=== PATIENT | male | born 1985 | race Caucasian/White ===

== ENCOUNTER 2023-01-05 10:19 | Emergency (ER) | payer OTHER, SELFPAY ==
[2023-01-05 10:29] VITALS: BP 140/85; PULSE 90; RESP 18; TEMP 37.2; O2SAT 100
--- NOTE | 2023-01-05 10:37 | ED.URI ---
HPI - URI/Sore Throat General Chief Complaint: Upper Respiratory Infection Stated Complaint: Sore Throat Time Seen by Provider: 01/05/23 10:32 Source: patient Mode of arrival: ambulatory Limitations: no limitations History of Present Illness HPI Narrative: Patient presents today complaining of sore throat since last night that increases with swallowing. Also has a mild cough and congestion which he attributes to seasonal allergies. Denies fever, shortness of breath, or difficulty swallowing. Currently rates pain 4/10 and has tried no [id number] treatment prior to arrival. was diagnosed with strep throat 2 days ago. Related Data Allergies Allergy/AdvReac Type Severity Reaction Status Date / Time amoxicillin AdvReac Mild Hives Verified 01/05/23 10:21 Penicillins AdvReac Mild HIVES Verified 01/05/23 10:21 Review of Systems Review of Systems: CONSTITUTIONAL: Denies body aches, fever, chills, or sweats. EYES: Denies visual changes, redness, or discharge. ENT: Denies rhinorrhea, or otalgia.+ sore throat, congestion CARDIOVASCULAR: Denies chest pain, palpitations, or edema. RESPIRATORY: Denies dyspnea.+ cough GASTROINTESTINAL: Denies abdominal pain, nausea, vomiting, or diarrhea. GENITOURINARY: Denies dysuria or hematuria. SKIN: Denies rash, itching, or wounds. MUSCULOSKELETAL: Denies back pain, joint pain, or myalgia. NEUROLOGIC: Denies headache, numbness, tingling, or weakness. PSYCH: Denies depression or anxiety. [facility] Past Medical History Medical History (Updated 01/05/23 @ 10:40 by Nessa Eastman, [facility], ) Depression Hypogonadism Scrotal varices Seasonal allergies Social History Social History Smoking status: Never smoker Alcohol intake: current Comments At time of signature, I have reviewed and agree with nursing past medical, surgical, social and family history unless otherwise noted. Please see nursing chart for further information. There is no relevant family history pertinent to the presenting complaint Exam Narrative: GENERAL: Well-appearing, well-nourished, and in no acute distress. HEAD: Normocephalic, atraumatic. EYES: EOMI. No redness or drainage. Conjunctivae normal. ENT: Mucous membranes pink and moist. Nares clear. No rhinorrhea. TMs normal bilaterally. Throat erythematous without edema or exudate. Uvula midline. NECK: Normal AROM. Supple. No lymphadenopathy. CHEST: No respiratory distress. Clear to auscultation. HEART: Regular rate and rhythm. No murmur appreciated. EXTREMITIES: Normal range of motion. No edema. SKIN: Warm, dry, no rash. Capillary refill normal. Normal skin turgor. NEURO: No focal deficits. Alert and oriented x3. Gait steady. PSYCH: Normal affect. No signs of depression or anxiety. Course Course Level of Care: Express Care Visit Vital Signs Vital signs: Vital Signs Temperature 98.9 F 01/05/23 10:29 Pulse Rate 90 01/05/23 10:29 Respiratory Rate 18 01/05/23 10:29 Blood Pressure 140/85 01/05/23 10:29 Pulse Oximetry 100 01/05/23 10:29 Oxygen Delivery Room Air 01/05/23 10:29 Temperature 98.9 F 01/05/23 10:29 Pulse Rate 90 01/05/23 10:29 Respiratory Rate 18 01/05/23 10:29 Blood Pressure 140/85 01/05/23 10:29 Pulse Oximetry 100 01/05/23 10:29 Oxygen Delivery Room Air 01/05/23 10:29 Reviewed. Pt has been instructed to follow up with his PCP regarding his elevated blood pressure today. MDM - URI/Sore Throat MDM Narrative Medical decision making narrative: Rapid strep positive. Prescription for Keflex sent to pharmacy. Anticipatory guidance given. Differential Diagnosis Differential diagnosis: Likely upper respiratory infection, viral infection, pharyngitis and other (Strep throat) Lab Data Attestation: I reviewed the patient's lab results. Labs: Strep Screen Positive Group A Strep *(Refe
== END 2023-01-05 10:41 | disposition home or self-care (01) ==
PROVIDERS: Emergency Provider Nurse Practitioner; PCP Internal Medicine
DX: J02.0 Streptococcal pharyngitis (principal)
CPT/HCPCS: 87880; 99213; G0463

== ENCOUNTER 2024-11-30 11:33 | Outpatient (CLI) | payer OTHER, SELFPAY ==
--- NOTE | ~2024-11-30 | XR_ITS ---
Lumbosacral Spine: AP and lateral views Clinical History: Pain Findings: The normal lordotic curve is maintained. There are probable bilateral L5 pars interarticul maya defects, with grade 1 anterolisthesis of L5 over S1. There is moderate degenerative disc narrowi ng L5-S1. The sacroiliac joints are normally outlined. Impression: Bilateral L5 pars interarticularis defects, with grade 1 anterolisthesis of L5 over S1. Reviewed, dictated and finalized at location [facility] Impression: Bilateral L5 pars interarticularis defects, with grade 1 anterolisthesis of L5 over S1.
--- NOTE | ~2024-11-30 | XR_ITS ---
Cervical Spine: AP, lateral, open-mouth views Clinical History: Pain Findings: There is straightening of the normal cervical lordosis. The vertebral bodies and posterior elements appear intact. The intervertebral disc spaces are well maintained. Pre-vertebral soft tiss ues are unremarkable. Impression: Straightening of the normal cervical lordosis. Reviewed, dictated and finalized at [facility]. [employer] Impression: Straightening of the normal cervical lordosis.
== END 2024-11-30 11:34 | disposition home or self-care (01) ==
LOC: GOSHIMG 11:34
PROVIDERS: PCP Nurse Practitioner; Visit Provider Nurse Practitioner
DX: M43.17 Spondylolisthesis, lumbosacral region (principal)
CPT/HCPCS: 72040; 72100

== ENCOUNTER 2025-01-06 08:55 | Outpatient (CLI) | payer OTHER, SELFPAY | END 2025-01-06 08:56 | disposition home or self-care (01) | PROVIDERS: PCP Nurse Practitioner Family; Visit Provider Nurse Practitioner Family | DX: H90.3 Sensorineural hearing loss, bilateral (principal); H93.13 Tinnitus, bilateral | CPT/HCPCS: 70553; A9579 ==

== ENCOUNTER 2025-03-22 08:00 | Outpatient (RCR) | payer OTHER, SELFPAY ==
--- NOTE | 2024-12-28 14:35 | OPREHPOC ---
Outpatient Therapy Plan of Care This is a Multidisciplinary Plan of Care that may contain components documented by all disciplines (PT, OT, and ST.) PT Problem 1 PT Problem #1 Knowledge Deficit PT Goal 1 Goal / Goal Update 1. Pt to be IND with issued HEP Target Visit 10 PT Problem 2 PT Problem #2 Pain PT Goal 1 Goal / Goal Update 1. Pt to report back pain no greater than 3/10 in the last week. 2. Pt to report neck pain no greater than 3/10 in the last week, Target Visit 10 PT Problem 3 PT Problem #3 Impaired Range of Motion PT Goal 1 Goal / Goal Update 1. pt to demonstrate equal active cervical ROM without pain. 2. Pt to demonstrate passive lavinia hip motion without an increase in pain. Target Visit 10 PT Problem 4 PT Problem #4 Impaired Strength PT Goal 1 Goal / Goal Update 1. Pt to demonstrate hip abduction strength of 4+/ 5 2. Pt to demonstrate 30lb lift and carry without an increase in symptoms. Target Visit 10
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
--- NOTE | 2025-01-27 10:02 | OPREHPOC ---
Outpatient Therapy Plan of Care This is a Multidisciplinary Plan of Care that may contain components documented by all disciplines (PT, OT, and ST.) PT Problem 1 PT Problem #1 Knowledge Deficit PT Goal 1 Goal / Goal Update 1. Pt to be IND with issued HEP 01/27/25: 1. met Target Visit 10 Progress Met PT Problem 2 PT Problem #2 Pain PT Goal 1 Goal / Goal Update 1. Pt to report back pain no greater than 3/10 in the last week. 2. Pt to report neck pain no greater than 3/10 in the last week, 01/27/25: 1. progressing, 04/19 2. progressing, 02/17 Target Visit 10 Progress Partially Met PT Problem 3 PT Problem #3 Impaired Range of Motion PT Goal 1 Goal / Goal Update 1. pt to demonstrate equal active cervical ROM without pain. 2. Pt to demonstrate passive lavinia hip motion without an increase in pain. 01/27/25: 1. progressing 2. met Target Visit 10 Progress Partially Met PT Problem 4 PT Problem #4 Impaired Strength PT Goal 1 Goal / Goal Update 1. Pt to demonstrate hip abduction strength of 4+/ 5 2. Pt to demonstrate 30lb lift and carry without an increase in symptoms. 01/27/25: 1. met 2. not met Target Visit 10 Progress Partially Met
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
--- NOTE | 2025-02-21 10:02 | OPREHPOC ---
Outpatient Therapy Plan of Care This is a Multidisciplinary Plan of Care that may contain components documented by all disciplines (PT, OT, and ST.) PT Problem 1 PT Problem #1 Knowledge Deficit PT Goal 1 Goal / Goal Update 1. Pt to be IND with issued HEP 01/27/25: 1. met 02/21/25: 1. met Target Visit 10 Progress Met PT Problem 2 PT Problem #2 Pain PT Goal 1 Goal / Goal Update 1. Pt to report back pain no greater than 3/10 in the last week. 2. Pt to report neck pain no greater than 3/10 in the last week, 01/27/25: 1. progressing, 04/19 2. progressing, 02/1702/21/25: 1. met, 12/20 2. met, Target Visit Progress Met PT Problem 3 PT Problem #3 Impaired Range of Motion PT Goal 1 Goal / Goal Update 1. pt to demonstrate equal active cervical ROM without pain. 2. Pt to demonstrate passive lavinia hip motion without an increase in pain. 01/27/25: 1. progressing 2. met 02/21/25: 1. met 2. met Target Visit 10 Progress Partially Met PT Problem 4 PT Problem #4 Impaired Strength PT Goal 1 Goal / Goal Update 1. Pt to demonstrate hip abduction strength of 4+/ 5 2. Pt to demonstrate 30lb lift and carry without an increase in symptoms. 01/27/25: 1. met 2. not met 02/21/25: 1. met 2. progressing Target Visit 10 Progress Partially Met
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
== END 2025-03-22 08:54 | disposition home or self-care (01) ==
LOC: ANHGOSHPT 08:00
PROVIDERS: PCP Internal Medicine; Visit Provider Nurse Practitioner
DX: M54.50 Low back pain, unspecified (principal); M54.2 Cervicalgia; V89.2XXA Person injured in unspecified motor-vehicle accident, traffic, initial encounter
CPT/HCPCS: 97014; 97110; 97140; 97161; 97530; G0283